=== PATIENT | female | born 1980 | race American Indian/Alaskan Native ===

== ENCOUNTER 2019-03-07 09:33 | Inpatient (IN) | payer OTHER ==
--- NOTE | 2019-03-03 12:02 | History and Physical Report ---
History of Present Illness Date of examination: 03/03/19 Date of admission: 03/07/19 Chief complaint: here for cs History of present illness: Pt presents for primary c/s due to having had two previous myomectomies. It was recommended by mfm she be delivered between 37.0-38.6 wks gestation. All risk, benefits, and alternatives have been d/w pt and placed on the chart. Consents signed and placed on the chart. EDC Calculations LMP: 03/18/2019 EDC Confirmation: 03/18/2019 Gestational Age: 12 3/7 weeks Past History : 3 Term Births: 0 Premature Births: 0 Living Children: 0 Para: 0 Mult. Births: 0 Prev : 0 Aborta: 0 Elect. Ab: 0 Spont. Ab: 2 # 1 Delivery date: 2006 Weeks Gestation: 9wk Delivery type: SAB Delivery location: [place] Comments: no D&C # 2 Delivery date: 2016 Weeks Gestation: 5-6weeks Delivery type: SAB Comments: no D&C Past Medical History: Fibroids no hx abnormal pap tests Anemia Past Surgical History: Myomectomy 2006 and 2016 Gastric sleeve 2016 Past Medical History Surgery (Non-beveler): Myomectomy 2005 and 2016 Gastric sleeve 2016 Abnormal PAP: negative Family Hx: htn - mother and father,MGM, PGM, MGF, PGF DM - father no known family hx cancer Social Hx: RN - case management, med surg No ETOH/Drugs/Smoking Infection History Hx of STD: none HIV Risk Eval: low risk Hepatitis B Risk Eval: low risk Personal hx. of genital herpes: no Partner hx. of genital herpes: no Rash, Viral, or Febrile illness since last LMP? no Varicella/Chicken Pox Status: Previous Disease Genetic History ADVANCED MATERNAL AGE Congenital Heart Defect: Mom: no Dad: no Arpita Disease: Mom: no Dad: no Thalassemia Mom: no Dad: no Neural Tube Defect Mom: no Dad: no Down's Syndrome Mom: no Dad: no Prashanth-Sachs Mom: no Dad: no Sickle Cell Disease/Trait Mom: no Dad: yes Comments: FOC - SCT Hemophilia Mom: no Dad: no Muscular Dystrophy Mom: no Dad: no Cystic Fibrosis Mom: no Dad: no [place] Chorea Mom: no Dad: no Mental Retardation Mom: no Dad: no Fragile X Mom: no Dad: no Other Genetic/Chromosomal Disorder Mom: no Dad: no Child w/other defect Mom: no Dad: no Enviromental Exposures Xray Exposure: no Medication, drug, or alcohol use since LMP: no Chemical/Other Exposure: no Exposure to Cat Liter: no Hx of Parvovirus (Fifth Disease): no Occupational Exposure to Children: none Active Medications (reviewed today): ZOFRAN ODT 8 MG ORAL TABLET DISINTEGRATING (ONDANSETRON) 1 po q12hrs prn ADDERALL TABLET (AMPHETAMINE-DEXTROAMPHETAMINE TABS) TOPAMAX TABLET (TOPIRAMATE TABS) Current Allergies (reviewed today): No known allergies Past History Past Medical History: other (see hpi) Past Surgical History: other (see hpi) [employer] History: other (see hpi) Family/Genetic History: other (see hpi) Social history: no significant social history, - Obstetrical History Expected Date of Delivery: 03/18/19 Actual Gestation: 37 Week(s) 6 Day(s) : 3 Spontaneous Abortions: 2 Medications and Allergies Active Meds: Active Medications Citric Acid/Sodium Citrate (Bicitra) 30 ml PO ONCE ONE Stop: 03/07/19 09:01 Famotidine (Pepcid) 20 mg IV ONCE ONE Stop: 03/07/19 09:01 Cefazolin Sodium (Ancef/Sterile Water 2 Gm/20 Ml) 2 gm in 20 mls @ 80 mls/hr IV PREOP NR; Protocol Metoclopramide HCl (Reglan) 10 mg IV ONCE ONE Stop: 03/07/19 09:01 Review of Systems All systems: negative - Physical Exam Breasts: Positive: deferred Cardiovascular: Normal S1, Normal S2 Lungs: Positive: Clear to auscultation Abdomen: Positive: normal appearance, soft. Negative: distention, tenderness, guarding Genitourinary (Female): Positive: other (deferred) Extremities: Positive: normal. Negative: tenderness, edema Deep Tendon Reflex Grade: Normal +2 - Obstetrical FHR: category 1 Results All other labs normal. Assessment and Plan - Patient Problems (1) Previous surgery to uterus affecting current in third trimester Status: Acute Plan to address problem: -admit and prepare for primary c/s -consents signed and placed on the chart. (2) 38 weeks gestation of Status: Acute
[~2019-03-07 09:33] MED LIST: ANCEF/STERILE WATER 2 GM/20 ML 2 GM/20 ML SYRINGE IV NR; BICITRA PO NR; PEPCID IV NR; PITOCin/NS 20 UNIT/1000ML DRIP 20 UNITS/1,000 ML BAG IV SCH; REGLAN IV NR
[2019-03-07 10:38] LABS: Basophils # (Auto) 0.1 K/mm3 (0.0-0.1); Eosinophils # (Auto) 0.1 K/mm3 (0.0-0.4); Eosinophils % (Auto) 1.1 % (0.0-4.3); Hemoglobin 10.8 gm/dl (10.1-14.3); Lymphocytes # (Auto) 2.2 K/mm3 (1.2-5.4); Lymphocytes % (Auto) 24.1 % (13.4-35.0); Mean Corpuscular HGB Conc 35 % (30-34); Mean Corpuscular Volume 78 fl (79-97); Monocytes # (Auto) 0.8 K/mm3 (0.0-0.8); Monocytes % (Auto) 8.7 % (0.0-7.3); Platelet Count 422 K/mm3 (140-440); Red Blood Count 3.96 M/mm3 (3.65-5.03); Red Cell Distribution Width 16.1 % (13.2-15.2)
[2019-03-07] MEDS: LACTATED RINGERS 1,000 ML IV SCH ×2 (10:45→11:21)
--- NOTE | 2019-03-07 11:21 | Anesthesia Consultation ---
Anesthesia Consult and Med Hx Date of service: 03/07/19 - Airway Anesthetic Teeth Evaluation: Good ROM Head & Neck: Adequate Mental/Hyoid Distance: Adequate Mallampati Class: Class II - Pulmonary Exam CTA: Yes - Cardiac Exam Cardiac Exam: RRR - Pre-Operative Health Status ASA Pre-Surgery Classification: ASA2 Proposed Anesthetic Plan: Epidural, Spinal - Pulmonary Hx Asthma: No COPD: No Hx Pneumonia: No - Cardiovascular System Hx Hypertension: No - Central Nervous System Hx Seizures: No Hx Psychiatric Problems: No - Endocrine Hx Renal Disease: No Hx End Stage Renal Disease: No Hx Hypothyroidism: No Hx Hyperthyroidism: No - Hematic Hx Anemia: Yes Hx Sickle Cell Disease: No
--- NOTE | 2019-03-07 11:21 | Anesthesia Day of Surgery ---
Anesthesia Day of Surgery - Day of Surgery Patient Examined: Yes Patient H&P Reviewed: Yes Patient is NPO: Yes
[2019-03-07] MEDS ORDERED: ZOFRAN ONE (11:28)
[2019-03-07] MEDS ORDERED: SUBLIMAZE ONE (11:28)
[2019-03-07] MEDS ORDERED: ANCEF/STERILE WATER 2 GM/20 ML IV ONE (11:40)
[2019-03-07] MEDS ORDERED: TORADOL ONE (12:10)
[2019-03-07] MEDS ORDERED: BENADRYL ONE (12:10)
--- NOTE | 2019-03-07 12:34 | Operative Report ---
Operative Report Operative Report: Date of procedure: 03/07/2019 Pre-operative diagnosis: 38 weeks gestation Previous myomectomy 2 Advanced maternal age Morbid obesity Breech presentation Post-operative diagnosis: Same Procedure name(s): Primary low transverse section via Pfannenstiel skin incision Surgeon: Dr. Rao Customer Sales Distributor: CINDY Anesthesia: Epidural EBL: 400ml Urine output: 100 mL of clear urine out at end of procedure Fluids: 1500 mL Findings: Live born male breech presentation Apgars of 8 and 9 at one and 5 minutes weight 7 lbs. 3 oz. Fallopian tubes and ovaries appeared to be normal bilaterally Indications: Patient with previous history of uterine surgery 2 via myomectomy. Patient consented for primary section. All risks benefits and alternatives were discussed with the patient. Consents were signed and placed on the chart. Procedure: Patient was taking to the operating room. Patient was then prepped and draped in sterile fashion after anesthesia was found to be adequate. A low transverse skin incision was made with the scalpel and carried down to the underlying layer of fascia with the Bovie. The fascia was then incised in the midline and this incision was extended bilaterally with the Bovie. The superior aspect of the fascia was grasped with Black clamps tented upward and dissected off of the anterior rectus muscles with the scalpel. In similar fashion the inferior aspect of the fascia was grasped with Black clamps tented upward and dissected off of the anterior rectus muscles. The rectus muscles were then bluntly divided in the midline. The peritoneum was identified and entered into sharply. The Paul retractor was placed The bladder blade was placed. The bladder flap was created using the Metzenbaum scissors. The bladder blade was replaced. A lower transverse uterine incision was made with the scalpel and extended bilaterally with the bandage scissors. Artificial rupture of membranes was performed yielding clear amniotic fluid. The infant was noted to be in footling breech presentation. Infant was delivered via normal breech extraction atraumatically. The anterior shoulder and rest of infant delivered without difficulty. The umbilical cord was clamped x2. The cord was cut. The was then placed in sterile bassinet. The placenta was manually extracted in its entirety. The uterus was not exteriorized and cleared of all clots and debris. The uterine incision was closed using 0 Vicryl in a running locking fashion. [id number] sutures using 0 Vicryl were used along the uterine incision to secure excellent hemostasis.. The posterior cul-de-sac was copiously irrigated. The uterus was returned to the abdomen. The gutters were also irrigated. The anterior rectus muscles were reapproximated using 3-0 Vicryl. The anterior rectus fascia was reapproximated using 0 Vicryl in a running fashion. The subcuticular fat was reapproximated using 2-0 Vicryl in a running fashion. The skin was reapproximated with 4-0 Monocryl in a subcuticular stitch. The patient tolerated the procedure well. Sponge lap and needle counts were all correct x3. Patient was taken to the recovery room awake and in stable condition.
[2019-03-07] MEDS ORDERED: DILAUDID ONE (12:36)
[2019-03-07] MEDS ORDERED: NARCAN 0.4 MG/1 ML IV PRN ×2 (12:46→13:00)
[2019-03-07] MEDS ORDERED: ZOFRAN IV PRN (12:46)
[2019-03-07] MEDS ORDERED: PHENERGAN PR PRN (12:46)
[2019-03-07] MEDS ORDERED: MORPHINE IV PRN (12:46)
[2019-03-07] MEDS ORDERED: DILAUDID IV PRN (12:46)
[2019-03-07] MEDS ORDERED: PHENERGAN PO PRN (12:46)
--- NOTE | 2019-03-07 12:48 | Post Anesthesia Evaluation ---
- Post Anesthesia Evaluation Patient Participated: Yes Airway Patent: Yes Stable Respiratory Function: Yes Nausea/Vomiting: No Temp > 96.8F: Yes Pain Manageable: Yes Adequeate Hydration: Yes Anesthesia Complications: No Block Receding Appropriately: Yes Patient on Ventilator: No
[2019-03-07] MEDS ORDERED: SODIUM CHLORIDE FLUSH SYRINGE 10 ML IV PRN (13:00)
[2019-03-07] MEDS ORDERED: TORADOL IV PRN (13:00)
[2019-03-07] MEDS ORDERED: SODIUM CHLORIDE FLUSH SYRINGE 10 ML IV NR (13:00)
[2019-03-07] MEDS ORDERED: TUCKS PAD TP PRN (13:00)
[2019-03-07] MEDS ORDERED: PITOCin/NS 20 UNIT/1000ML DRIP 20 UNITS/1,000 ML BAG IV SCH (13:00)
[2019-03-07] MEDS ORDERED: LANSINOH TP PRN (13:00)
[2019-03-07] MEDS ORDERED: D5LR 1,000 ML IV SCH (13:00)
[2019-03-07] MEDS ORDERED: MYLICON PO PRN (13:00)
[2019-03-07] MEDS: MORPHINE IV PRN ×2 (17:02→23:12)
[2019-03-07] MEDS: ANCEF/NS 1 GM/50 ML 1 GM/50 ML BAG IV SCH (17:54)
[2019-03-08 00:56] LABS: Hematocrit 24.4 % (30.3-42.9); Hemoglobin 8.7 gm/dl (10.1-14.3)
[2019-03-08] MEDS: ANCEF/NS 1 GM/50 ML 1 GM/50 ML BAG IV SCH (02:25)
[2019-03-08] MEDS: NORCO 5/325 PO PRN ×4 (03:03→22:07)
[2019-03-08] MEDS ORDERED: BOOSTRIX IM ONE (06:00)
[2019-03-08] MEDS: MORPHINE IV PRN (06:11)
--- NOTE | 2019-03-08 06:18 | Event Note ---
Date: 03/08/19 Called to inquire about the UOP. Advised by RN that blanc was just removed by the UOP has been adequet but had not been documented at this time. States pt had 600ml in blanc at time of removal.
--- NOTE | 2019-03-08 09:43 | Progress Note ---
Assessment and Plan POD 1 Patient resting in bed, reports feeling well, denies any complaints or concerns. Patient reports pain is well controlled with pain medications, but incision is starting to burn some. RN to administer pain medications. Fundus is firm, ML, U/1. Vaginal bleeding is small, patient denies any clots or heavy bleeding. Incision is dressed, C/D/I. Patient reports breast feeding is going well, she denies any breast complaints. Reports infant is doing well. VSSAF. Reviewed post op H&H, patient denies any dizziness or feeling faint with a mbulation or position changes. Will order ferrous sulfate and colace and send rx home to continue. Encouraged patient to increase water intake, continue frequent ambulation and use of IS. Continue post-op pathway. Will reassess tomorrow for discharge readiness. Subjective - Subjective Date of service: 03/08/19 Patient reports: appetite normal, voiding normally, pain well controlled, ambulating normally : doing well Objective - Vital Signs Latest vital signs: Vital Signs Temp Pulse Resp BP BP Pulse Ox 03/08/19 09:05 98.3 F 111 H 20 131/77 99 03/08/19 06:41 18 03/08/19 06:11 18 03/08/19 04:03 18 03/08/19 04:00 98.4 F 69 18 109/63 03/08/19 03:03 18 03/08/19 00:00 98.6 F 74 16 118/73 03/07/19 23:42 18 03/07/19 19:30 98.7 F 77 18 117/78 03/07/19 17:08 98.2 F 97 H 18 133/72 99 03/07/19 13:45 98.0 F 85 14 129/80 03/07/19 13:30 83 14 118/74 03/07/19 13:15 84 124/69 03/07/19 13:00 85 14 122/68 03/07/19 12:55 88 14 123/76 03/07/19 12:50 83 14 124/64 03/07/19 12:45 97.9 F 87 14 120/57 03/07/19 10:37 90 134/75 03/07/19 10:16 98.8 F 96 H 20 03/07/19 09:56 96 H 141/90 Intake and Output 03/07/19 03/08/19 03/08/19 23:59 07:59 15:59 Intake Total 710 Output Total 650 Balance 710 -650 Intake: IV 50 ANCEF/NS 1 GM/50 ML 1 gm 50 In 50 ml @ 100 mls/hr IV Q8H [facility] Rx#:[id number] Oral 360 Intake, Free Water 300 Output: Urine 650 Void 650 Other: Total, Intake Amount 360 Total, Output Amount 650 Voiding Method Indwelling Catheter # Voids Void 150 - Exam Breasts: Present: normal Cardiovascular: Present: Regular rate, Normal S1, Normal S2 Lungs: Present: Clear to auscultation, Normal air movement Abdomen: Present: normal appearance, soft, normal bowel sounds Vulva: both: normal Uterus: Present: normal, firm, fundal height below umbilicus Extremities: Present: normal Incision: Present: dressed (C/D/I) - Labs Labs: Abnormal lab results 03/07/19 03/08/19 Range/Units 10:00 00:41 Hgb 8.7 L (10.1-14.3) gm/dl Hct 24.4 L D (30.3-42.9) % MCV 78 L (79-97) fl MCH 27 L (28-32) pg MCHC 35 H (30-34) % RDW 16.1 H (13.2-15.2) % [place]ulloch % (Auto) 8.7 H (0.0-7.3) %
[2019-03-08] MEDS: IBUPROFEN PO PRN ×3 (09:45→22:06)
[2019-03-08] MEDS: FEOSOL PO SCH ×2 (10:02→22:02)
[2019-03-08] MEDS: COLACE PO SCH ×2 (10:02→22:02)
[2019-03-08] MEDS ORDERED: NORCO 5/325 PO PRN (18:40)
--- NOTE | 2019-03-09 10:05 | Discharge Summary ---
Providers - Providers Date of Admission: 03/07/19 09:33 Date of discharge: 03/09/19 (patient desires discharge today) Attending physician: HUGN SU Primary care physician: [facility] Hospitalization Reason for admission: scheduled primary c/s for hx of uterine scar Condition: Good Pertinent studies: post delivery H&H 8.7/24.4, anemia d/t acute blood loss at delivery, patient is asymptomatic. Fe ordered. Procedures: primary c/s for hx of uterine scar Hospital course: uneventful delivery and post op course Disposition: DC-01 TO HOME OR SELFCARE Core Measure Documentation - Palliative Care Palliative Care/ Comfort Measures: Not Applicable - Core Measures Any of the following diagnoses?: none Exam - Constitutional Vitals: Temp Pulse Resp BP Pulse Ox 98.4 F 92 H 18 136/70 97 03/09/19 08:04 03/09/19 08:04 03/09/19 08:04 03/09/19 08:04 03/09/19 08:04 General appearance: Present: no acute distress, well-nourished - EENT Eyes: Present: PERRL ENT: hearing intact, clear oral mucosa - Neck Neck: Present: supple, normal ROM - Respiratory Respiratory effort: normal Respiratory: bilateral: CTA - Cardiovascular Rhythm: regular Heart Sounds: Present: S1 & S2. Absent: rub, click - Extremities Extremities: pulses symmetrical, No edema Peripheral Pulses: within normal limits - Abdominal General gastrointestinal: Present: soft, non-tender, non-distended, normal bowel sounds Female genitourinary: Present: normal - Integumentary Integumentary: Present: clear, warm, dry - Musculoskeletal Musculoskeletal: gait normal, strength equal bilaterally - Psychiatric Psychiatric: appropriate mood/affect, intact judgment & insight - Neurologic Neurologic: CNII-XII intact, moves all extremities - Additional findings Additional findings: FF, ML, U/2. Vaginal bleeding is scant, patient denies any clots or heavy vaginal bleeding. Incision is well-approximated, healing well, no bleeding or drainage, no s/s infection. Steri- strips in place. DWP proper incision care/hygiene. Patient reports pain is well controlled with medications. VSSAF. DWP post delivery H&H, she denies any dizziness or feeling faint with ambulation or position changes. Encourages to continue PO water intake, frequent ambulation, and use of IS. Patient reports breast feeding is going well, denies any breast complaints. Plan Activity: advance as tolerated Diet: regular Wound: open to air, keep clean and dry Follow up with: HUNG SU MD [Staff Physician] - 7 Days (Congratulations! Please call [phone] to schedule your post-op incision check in 1 week. Please schedule your son's circumcision appointment in our office in 1 week. Bring prescription EMLA cream with you to his appointment and await further instructions for use. Please call with any questions or concerns. ) Prescriptions: Docusate Sodium [Colace] 100 mg PO BID PRN #60 capsule PRN Reason: Constipation Lidocain2.5%/Prilocai2.5% [Emla] 1 gm TP ONCE #1 tube Ferrous Sulfate [Feosol 325 MG tab] 325 mg PO BID #60 tablet Ibuprofen [Motrin 800 MG tab] 800 mg PO Q6HR PRN #30 tablet PRN Reason: Pain, Moderate (4-6) oxyCODONE /ACETAMINOPHEN [Percocet 5/325] 1 tab PO Q4HR #30 tab
[2019-03-09] MEDS: COLACE PO SCH (11:48)
[2019-03-09] MEDS: IBUPROFEN PO PRN (11:48)
[2019-03-09] MEDS: FEOSOL PO SCH (11:48)
[2019-03-09 17:08] VITALS: BP 142/79
== END 2019-03-09 17:25 | disposition home or self-care (01) | DRG 787 ==
LOC: APU 09:33 → OB 14:18
PROVIDERS: ADMIT Obstetrics & Gynecology; ATTEND Obstetrics & Gynecology
PROC: 10D00Z1 Extraction of Products of Conception, Low, Open Approach (ICD-10-PCS; principal; 2019-03-07)
PROC: 3E0234Z Introduction of Serum, Toxoid and Vaccine into Muscle, Percutaneous Approach (ICD-10-PCS; 2019-03-08)
DX: O34.29 Maternal care due to uterine scar from other previous surgery (principal); D62 Acute posthemorrhagic anemia; E66.01 Morbid (severe) obesity due to excess calories; O99.214 Obesity complicating childbirth; O32.8XX0 Maternal care for other malpresentation of fetus, not applicable or unspecified; Z90.49 Acquired absence of other specified parts of digestive tract; Z82.49 Family history of ischemic heart disease and other diseases of the circulatory system; Z23 Encounter for immunization; Z3A.38 38 weeks gestation of pregnancy; Z37.0 Single live birth; O90.81 Anemia of the puerperium
CPT/HCPCS: 36415; 59025; 85014; 85018; 85025; 86850; 86900; 86901; 88307; 90471; 90715; 96360; 96374; G0378; A6250; J0690; J1170; J1200; J1885; J2270; J2405; J2590; J2765; J3010; J7120; J7121

== ENCOUNTER 2020-06-01 14:24 | Outpatient (CLI) | payer OTHER ==
--- NOTE | 2020-06-02 09:55 | Mammography Report ---
BILATERAL DIGITAL SCREENING MAMMOGRAM WITH CAD HISTORY: SCREENING TECHNIQUE: Routine digital mammographic imaging performed. This examination was interpreted with james armendariz benefit of Computer-aided Detection analysis. COMPARISON: None available, this is a baseline exam. FINDINGS: Breast Density: scattered fibroglandular appearance of the breast tissue. Digital CC and MLO views demonstrate no mammographic evidence of malignancy. IMPRESSION: No mammographic evidence of malignancy. If the clinical examination remains stable, recommend bilate ral mammogram in approximately one year. BIRADS 1: Negative. FURTHER INFORMATION: According to the [employer], yearly mammograms are recommend ed starting at age 40 and continuing as long as a woman is in good health. Clinical Breast Exams shou ld be part of a periodic health exam-about every 3 years for women in their 20s and 30s and every yea r for women 40 and over. Breast self exam is an option for women starting in their 20s. Any breast ch dara noted on a breast self exam should be reported promptly to the patient's healthcare provider. Br east MRI is recommended for women with an approximately 20-25% or greater lifetime risk of breast can cer, including women with a strong family history of breast or ovarian cancer and women who have been treated for Hodgkin's disease. A negative Mammography report should not discourage follow up or biopsy of a clinically significant f inding and/or abnormality. Dense breast tissue may obscure small neoplasms. The patient will be entered into a reminder system with a target due date for the next screening mamm ogram. Signer Name: Toni Love MD Signed: 06/02/2020 9:50 AM Workstation Name: [id number]
== END 2020-06-01 14:25 | disposition home or self-care (01) ==
LOC: SPVWC 14:24
PROVIDERS: ATTEND Obstetrics & Gynecology
DX: Z12.31 Encounter for screening mammogram for malignant neoplasm of breast (principal)
CPT/HCPCS: 77067

== ENCOUNTER 2021-08-08 11:15 | Outpatient (CLI) | payer OTHER ==
--- NOTE | 2021-08-09 13:08 | Mammography Report ---
DIGITAL SCREENING MAMMOGRAM WITH CAD, 08/08/2021 CLINICAL INFORMATION / INDICATION: Routine screening mammography. SCREENING MAMMO Z12.31 TECHNIQUE: Digital bilateral 2D mammography was obtained in the craniocaudal and mediolateral obliqu e projections. This examination was interpreted with the benefit of Computer-Aided Detection analysis . COMPARISON: 06/01/2020 FINDINGS: Breast Density: There are scattered areas of fibroglandular density. No dominant mass, suspicious calcifications, or architectural distortion in either breast. IMPRESSION: No mammographic evidence of malignancy. Follow up recommendation: Routine yearly BI-RADS Category 1: Negative. A "normal" or negative report should not discourage follow up or biopsy of a clinically significant f inding. A written summary of these findings will be mailed to the patient. The patient will be entered into a mammography reporting system which will generate a reminder letter for the patient's next appointmen t at the appropriate interval. The [employer] recommends yearly mammograms starting at age 40 and continuing as l yahir as a woman is in good health. Breast MRI is recommended for women with an approximate 20-25% or greater lifetime risk of breast cancer, including women with a strong family history of breast or ova kalpana cancer or who have been treated for Hodgkin's disease. Signer Name: Robbie Nroris MD Signed: 08/09/2021 1:03 PM Workstation Name: [id number]
== END 2021-08-08 11:16 | disposition home or self-care (01) ==
LOC: SPVWC 11:15
PROVIDERS: ATTEND Obstetrics & Gynecology
DX: Z12.31 Encounter for screening mammogram for malignant neoplasm of breast (principal)
CPT/HCPCS: 77067